=== PATIENT | male | born 1955 | race Caucasian/White ===

== ENCOUNTER 2016-11-23 07:45 | Emergency (ER) | payer BC ==
[2016-11-23] MEDS ORDERED: SODIUM CHLORIDE 1,000 ML IV STA (07:55)
[2016-11-23] MEDS ORDERED: IBUPROFEN 800 MG/8 ML IJ IVPB ONE ×2 (07:55→08:45)
--- NOTE | 2016-11-23 07:55 | PDOC ---
History of Present Illness - General Stated Complaint: GENERALIZED PAIN Time Seen by Provider: 11/23/16 07:54 History Source: Patient Exam Limitations: No Limitations - History of Present Illness Initial Comments: 11/23/16 08:02 61 yo M with a PMHx of NIDDM, HTN, HLD, who presents to the ER with a complaint of myalgias. Pt reports that 1 year ago, he presented to the ER multiple times due to diffuse myalgias 3 days s/p tooth extraction and 1 day s/p cervical spine injection. He was admitted and ultimately diagnosed with viral vs. chemical meningitis. Patient has been well since then He again had a molar extraction (had antibiotics prior to this). Last night he noted a sudden onset of pain in his anterior thighs last night. He soon after had similar pain in his arms and then his chest. He describes the pain as throbbing, and initially was a 5/10 in intensity. The chest pain was like pressure and is small, 4/10, it is completely relieved when sitting forward. Patient had a lf molar tooth extraction this past Saturday. He says the pain is worse this morning, and now rates it a 10/10. He also complains of a slight headache, rated 3-4/10. He has had subjective fever (99F at home), chills. Patient states he returned from a cruise to [place] 2 wks ago. No arthropod bites No ill contacts PMH: NIDDM, HTN, HLD, meningitis PSH: rt carotid endarterectomy (2012); cardiac cath (~15 yrs ago); b/l trigger fingers Meds: please see MAR ALL: please see MAR Social: casual smoker (few cigarettes GENERAL/CONSTITUTIONAL: Yes: weak appearing No: fever, chills, weakness, loss of appetite. HEAD, EYES, EARS, NOSE AND THROAT: No: change in vision, ear pain, discharge, sore throat, throat swelling. CARDIOVASCULAR: Yes: chest pain No: lightheadedness, palpitations, syncope RESPIRATORY: No: cough, shortness of breath, wheezing, hemoptysis, stridor. GASTROINTESTINAL: No: nausea, vomiting, diarrhea, abdominal pain GENITOURINARY: No: dysuria, hematuria, frequency, urgency, flank pain. MUSCULOSKELETAL: Yes: myalgias No: back pain, neck pain, joint pain, muscle swelling or pain SKIN: No: lesions, pallor, rash or easy bruising. NEUROLOGIC: Yes: headache No: vertigo, paresthesias, weakness ENDOCRINE: No: unexplained weight gain or loss HEMATOLOGIC/LYMPHATIC: No: anemia, easy bleeding, swelling nodes. GENERAL: The patient is in no acute distress, tearful on exam. HEAD: Normal with no signs of trauma. EYES: PERRLA, EOMI, sclera anicteric, conjunctiva clear. ENT: Ears normal, nares patent, oropharynx clear without exudates. Moist mucous membranes. NECK: Normal range of motion, supple without lymphadenopathy, JVD, or masses. LUNGS: Breath sounds equal, clear to auscultation bilaterally. No wheezes, and no crackles. HEART:Regular rate and rhythm, murmur LSB 3/6 (documented on prior visit) , no rubs or gallops. ABDOMEN: Soft, nontender, normoactive bowel sounds. No guarding, no rebound. EXTREMITIES: Normal range of motion, no edema. No clubbing or cyanosis. No erythema, or tenderness. NEUROLOGICAL: Cranial nerves II through XII grossly intact. Normal speech. No focal neurological deficits. MUSCULOSKELETAL: Back non-tender to palpation, no CVA tenderness SKIN: Warm, Dry, normal turgor, no rashes or lesions noted. 11/23/16 08:03 11/23/16 08:07 11/23/16 08:21 11/23/16 08:30 11/23/16 10:45 Past History - Past Medical History Allergies/Adverse Reactions: Allergies Allergy/AdvReac Type Severity Reaction Status Date / Time colesevelam HCl AdvReac Intermediate Verified 11/23/16 07:55 [From WelChol] ezetimibe [From Zetia] AdvReac Intermediate Verified 11/23/16 07:55 Kmghtsx-Jzv-Fck Reductase AdvReac Intermediate myalgias Verified 11/23/16 07:55 Inhibitor rosuvastatin calcium AdvReac Myalgias Verified 11/23/16 07:55 [From Crestor] Home Medications: Ambulatory Orders Ibuprofen 400 mg PO ASDIR 10/08/15 Multivitamin [Multiple Vitamins] 1 each PO DAILY tablet 12/06/15 Amoxicillin/Potassium Clav [Augmentin 875-125 Tablet] 1 each PO BID #10 tablet 11/23/16 Anemia: No Asthma: No Cancer: No Cardiac Disorders: Yes (RIGHT CAROTID ENDARTERECTOMY 07/14) CVA: No COPD: No CHF: No Dementia: No Diabetes: Yes GI Disorders: No Disorders: No HTN: Yes Hypercholesterolemia: Yes Liver Disease: No Seizures: No Thyroid Disease: No - Surgical History Abdominal Surgery: No Appendectomy: No Cardiac Surgery: Yes (CARDIAC CATHETER 10 YRS AGO -NORMAL) Cholecystectomy: No Lung Surgery: No Neurologic Surgery: No Orthopedic Surgery: Yes (TENDON REPAIR) - Suicide/Smoking/Psychosocial Hx Smoking History: Former smoker Have you smoked in the past 12 months: Yes Number of Cigarettes Smoked Daily: 10 If you are a former smoker, when did you quit?: 10 'Breaking Loose' booklet given: 10/11/15 Hx Alcohol Use: No Drug/Substance Use Hx: No Substance Use Type: None Hx Substance Use Treatment: No Heart Score/ECG Review #1 ECG reviewed & interpreted by me at: 12:11 General ECG Interpretation: Sinus Rhythm, Normal Intervals, No acute ischemic changes ED Treatment Course - LABORATORY CBC & Chemistry Diagram: 11/23/16 08:40 11/23/16 08:40 Medical Decision Making - Medical Decision Making 11/23/16 08:37 Per chart review, it was unclear if pt had viral meningitis or chemical meningitis Pt during last admission was altered, and febrile Will do: Labs Blood cultures IV hydration Motrin Admit Neuro/ID consults 11/23/16 09:48 Laboratory Tests 11/23/16 11/23/16 11/23/16 08:00 08:40 08:40 WBC 5.3 Hgb 13.5 Hct 40.2 Plt Count 320 D Sodium 132 L Potassium 4.2 Chloride 101 Carbon Dioxide 26 BUN 15 Creatinine 0.8 Random Glucose 138 H Alkaline Phosphatase 65 D Troponin I Urine Blood Trace-lysed H Urine Nitrite Negative Urine RBC 0-3 Urine WBC 0-3 11/23/16 08:40 WBC Hgb Hct Plt Count Sodium Potassium Chloride Carbon Dioxide BUN Creatinine Random Glucose Alkaline Phosphatase Troponin I < 0.03 L Urine Blood Urine Nitrite Urine RBC Urine WBC 11/23/16 09:[address] Collins 11/23/16 10:[address] Collins Pt can be discharged given symptoms improved with motrin AND labs nml Will review this with hospitalist as well 11/23/16 11:16 Pt seen in the ER by BLANK De Los Santos Plan will be for a single dose of Unasyn, discharge on Augmentin Pt aware of indications for return to the ER Clinical impression: possible viral illness, myalgias 11/23/16 11:[address] Bobby He agrees with plan for Unasyn and Augmentin upon discharge Pt given po potassium Pt daughter concerned that this will drop his sodium Offered to repeat labs Pt has declined *DC/Admit/Observation/Transfer Diagnosis at time of Disposition: Myalgia and myositis - Discharge Dispostion Disposition: HOME Condition at time of disposition: Stable Admit: No - Prescriptions Prescriptions: Amoxicillin/Potassium Clav [Augmentin 875-125 Tablet] 1 each PO BID #10 tablet - Referrals Referrals: Eduardo Collins MD [Staff Physician] - Mariano Shea MD [Staff Physician] - - Patient Instructions Printed Discharge Instructions: DI for Viral Syndrome, DI for Fever (Symptom) - - Adult Additional Instructions: Mr. Jeter Thank you for coming in to the ER today Please monitor yourself for fevers despite taking Motrin or Tylenol for pain Please monitor yourself for worsening symptoms You should come back to the ER if you notice any new or worsening symptoms Please follow up with the block greaser Please follow up with Dr Collins next week We sent blood cultures, they should be resulted in 2-3 days
[2016-11-23 08:07] VITALS: BP 152/74; PULSE 82; TEMP 98.2; BMI 26.6
[2016-11-23 08:11] LABS: PH,URINE 5.5 (4.5-8); URINE APPEARANCE Clear; URINE BILIRUBIN Negative (NEGATIVE); URINE GLUCOSE (UA) Negative (NEGATIVE); URINE KETONE Negative (NEGATIVE); URINE LEUK ESTERASE Negative (NEGATIVE); URINE NITRITE Negative (NEGATIVE); URINE PROTEIN Negative (NEGATIVE); URINE UROBILINOGEN 0.2 (0.2-1.0)
[2016-11-23 08:13] LABS: URINE BLOOD Trace-lysed (NEGATIVE); URINE COLOR YELLOW
[2016-11-23 08:20] LABS: URINE BACTERIA FEW /hpf (NEGATIVE); URINE RBC 0-3 /hpf (0-3); URINE WBC 0-3 (3-5)
[2016-11-23 08:54] LABS: MCH 27.2 pg (25.7-33.7); MCHC 33.5 g/dl (32.0-35.9); MEAN CELL VOLUME 81.1 fl (80-96); MEAN PLT VOLUME 8.1 fl (7.5-11.1); PLATELET COUNT 320 K/MM3 (134-434); RDW 12.4 % (11.9-15.9); WHITE BLOOD COUNT 5.3 K/mm3 (4.0-10.8)
[2016-11-23 09:08] LABS: ALBUMIN 4.1 g/dl (3.5-5.0); ALK PHOS 65 U/L (32-92); ANION GAP 5 (8-16); BILIRUBIN,TOTAL 0.9 mg/dl (0.2-1.0); CALCIUM 9.5 mg/dl (8.4-10.2); CO2 26 mmol/L (22-28); CREATININE 0.8 mg/dl (0.6-1.3); GLUCOSE,RANDOM 138 mg/dl (74-106); SGOT/AST 17 U/L (10-42); SGPT/ALT 20 U/L (10-40); TOT PROT 6.8 g/dl (6.4-8.3)
[2016-11-23 09:17] LABS: PLATELET ESTIMATE ADEQUATE (NORMAL)
[2016-11-23] MEDS ORDERED: POTASSIUM CHLORIDE TABS 20 MEQ TABLET.ER (FP) PO ONE ×2 (10:47→11:01)
[2016-11-23] MEDS ORDERED: AMPICILLIN NA/SULBACTAM NA 3 GM in SODIUM CHLORIDE 100 ML IVPB ONE (11:05)
[2016-11-23] MEDS ORDERED: AMPICILLIN NA/SULBACTAM NA 3 GM VIAL ONE (11:08)
== END 2016-11-23 12:23 | disposition home or self-care (01) ==
LOC: FER 07:45
PROC: 3E03329 Introduction of Other Anti-infective into Peripheral Vein, Percutaneous Approach (ICD-10-PCS; principal; 2016-11-23)
PROC: 3E033GC Introduction of Other Therapeutic Substance into Peripheral Vein, Percutaneous Approach (ICD-10-PCS; 2016-11-23)
PROC: 3E0337Z Introduction of Electrolytic and Water Balance Substance into Peripheral Vein, Percutaneous Approach (ICD-10-PCS; 2016-11-23)
DX: M60.9 Myositis, unspecified (principal); E11.9 Type 2 diabetes mellitus without complications; I10 Essential (primary) hypertension; E78.5 Hyperlipidemia, unspecified
CPT/HCPCS: 36415; 80053; 81003; 81015; 84484; 85025; 87040; 87086; 99282-25

== ENCOUNTER 2017-07-04 13:44 | Emergency (ER) | payer OTHER, BC ==
[2017-07-04 13:52] VITALS: BP 152/63; PULSE 80; TEMP 98.3; BMI 26.6
--- NOTE | 2017-07-04 15:20 | PDOC ---
History of Present Illness - General Chief Complaint: Laceration Stated Complaint: LACERATION Time Seen by Provider: 07/04/17 14:33 History Source: Patient Exam Limitations: No Limitations - History of Present Illness Timing/Duration: reports: just prior to arrival Severity: Yes: mild Location: reports: extremities (left index finger- avulsion/ flap laceration) Associated Symptoms: reports: denies symptoms Past History - Travel Traveled outside of the country in the last 30 days: No Close contact w/someone who was outside of country & ill: No - Past Medical History Allergies/Adverse Reactions: Allergies Allergy/AdvReac Type Severity Reaction Status Date / Time colesevelam HCl AdvReac Intermediate Verified 07/04/17 13:46 [From WelChol] ezetimibe [From Zetia] AdvReac Intermediate Verified 07/04/17 13:46 Laipyyq-Gjv-Fng Reductase AdvReac Intermediate myalgias Verified 07/04/17 13:46 Inhibitor rosuvastatin calcium AdvReac Myalgias Verified 07/04/17 13:46 [From Crestor] Home Medications: Ambulatory Orders Ibuprofen 400 mg PO ASDIR 10/08/15 Multivitamin [Multiple Vitamins] 1 each PO DAILY tablet 12/06/15 Amoxicillin/Potassium Clav [Augmentin 875-125 Tablet] 1 each PO BID #10 tablet 11/23/16 Anemia: No Asthma: No Cancer: No Cardiac Disorders: Yes (RIGHT CAROTID ENDARTERECTOMY 07/14) CVA: No COPD: No CHF: No DVT: No Dementia: No Diabetes: Yes GI Disorders: No Disorders: No HTN: Yes Hypercholesterolemia: Yes Liver Disease: No Seizures: No Thyroid Disease: No - Surgical History Abdominal Surgery: No Appendectomy: No Cardiac Surgery: Yes (CARDIAC CATHETER 10 YRS AGO -NORMAL) Cholecystectomy: No Lung Surgery: No Neurologic Surgery: No Orthopedic Surgery: Yes (TENDON REPAIR) - Suicide/Smoking/Psychosocial Hx Smoking History: Former smoker Have you smoked in the past 12 months: Yes Number of Cigarettes Smoked Daily: 2 If you are a former smoker, when did you quit?: 10 Information on smoking cessation initiated: Yes 'Breaking Loose' booklet given: 07/04/17 Hx Alcohol Use: No Drug/Substance Use Hx: No Substance Use Type: None Hx Substance Use Treatment: No Review of Systems - Review of Systems Able to Perform ROS?: Yes Is the patient limited Sudanese proficient: Yes Constitutional: Yes: Symptoms Reported, See HPI. No: Malaise HEENTM: Yes: Symptoms Reported Respiratory: Yes: See HPI. No: Symptoms reported Musculoskeletal: Yes: Symptoms Reported, See HPI, Joint Pain, Joint Swelling Integumentary: Yes: Symptoms Reported, See HPI Neurological: No: Symptoms reported All Other Systems: Reviewed and Negative *Physical Exam - Vital Signs Last Vital Signs Temp Pulse Resp BP Pulse Ox 98.3 F 80 18 152/63 100 07/04/17 13:47 07/04/17 13:47 07/04/17 13:47 07/04/17 13:47 07/04/17 13:47 - Physical Exam General Appearance: Yes: Nourished, Appropriately Dressed, Apparent Distress, Mild Distress HEENT: positive: AMBER, Normal ENT Inspection, TMs Normal, Pharynx Normal Extremity: positive: Normal Capillary Refill, Normal Inspection, Normal Range of Motion, Other Integumentary: positive: Normal Color, Pale, Other (3cm flap laceration extending from distal tip= radial aspect alongside radial aspect of the fingernail distal tip. Nail is intact, has full range of motion to finger, and sensation is intact distal) Neurologic: positive: seam finisher II-XII NML intact, Fully Oriented, Alert, Normal Mood/ Affect, Normal Response, Motor Strength 5/5 Procedures - Laceration/Wound Repair Left Finger Wound Length: 2.6 to 5.0 cm Wound's Depth, Shape: superficial, flap Irrigated w/ Saline: Yes Betadine Prep: Yes Wound Repaired With: Sutures Suture Size/Type: 5:0 Number of Sutures: 7 Layer Closure: No Splint Applied: Yes Progress Note - Progress Note Progress Note: finger laceration repaired, splint applied. We will watch and wait for need for antibiotics. Patient's tetanus/diphtheria/pertussis booster updated today *DC/Admit/Observation/Transfer Diagnosis at time of Disposition: Finger laceration Qualifiers: Encounter type: initial encounter Finger: little finger Damage to nail status: without damage Foreign body presence: without foreign body Laterality: left Qualified Code(s): S61.217A - Laceration without foreign body of left little finger without damage to nail, initial encounter - Discharge Dispostion Disposition: HOME Condition at time of disposition: Stable Admit: No - Referrals Referrals: Eduardo Collins MD [Primary Care Provider] - - Patient Instructions Printed Discharge Instructions: DI for Laceration Repair Additional Instructions: Rest, elevate, avoid strenuous activity or heavy lifting until sutures are removed Leave dressing on for the next 24 hours, Then may remove dressing gently and wash area with soap and water. Reapply bacitracin ointment and dressing daily for the next 5 days On day #6 keep the wound protected and cover as needed until sutures are removed allowing wound to start to dry May use Tylenol or Motrin for pain relief Suture removal in :-10 Days Return immediately to emergency department for redness, swelling, evidence of infection or severe pain to finger for reevaluation and possible need for antibiotic therapy. Your tetanus/diphtheria/pertussis booster was updated today - Post Discharge Activity Forms/Work/School Notes: Back to Work
[2017-07-04] MEDS ORDERED: TETANUS IMMUNE GLOBULIN 250 UNITS DISP.SYRIN IM ONE (15:43)
[2017-07-04] MEDS ORDERED: DIPHTH,PERTUSS(ACELL),TET 0.5 ML DISP.SYRIN IM ONE (15:48)
== END 2017-07-04 15:50 | disposition home or self-care (01) ==
LOC: JERFT 13:44
PROC: 0HQGXZZ Repair Left Hand Skin, External Approach (ICD-10-PCS; principal; 2017-07-04)
PROC: 3E0234Z Introduction of Serum, Toxoid and Vaccine into Muscle, Percutaneous Approach (ICD-10-PCS; 2017-07-04)
DX: S61.217A Laceration without foreign body of left little finger without damage to nail, initial encounter (principal); W45.8XXA Other foreign body or object entering through skin, initial encounter; Y93.9 Activity, unspecified; Y92.9 Unspecified place or not applicable; Z87.891 Personal history of nicotine dependence; I10 Essential (primary) hypertension; E78.00 Pure hypercholesterolemia, unspecified; E11.9 Type 2 diabetes mellitus without complications
CPT/HCPCS: 90715; 99281-25